=== PATIENT | male | born 1975 | race African-American/Black ===

== ENCOUNTER 2019-01-16 14:03 | Inpatient (IN) | payer MEDICAID ==
[~2019-01-16] VITALS: Ht 182.9 cm; Wt 127.5 kg
[2019-01-16] MEDS ORDERED: SODIUM CHLORIDE 0.9% 1,000 ML IV ONE (14:18)
[2019-01-16] MEDS ORDERED: FAMOTIDINE 20MG/2ML VIAL IV STA (14:18)
[2019-01-16 14:55] LABS: EOSINOPHILS % 1.5 % (0.0-5.0); HEMATOCRIT. 30.5 % (42.0-52.0); HEMOGLOBIN. 9.6 g/dL (14.0-18.0); LYMPHOCYTES % 34.7 % (20.0-50.0); MEAN CORPUSCULAR HEMOGLOBIN 24.3 pg (28.0-32.0); MEAN CORPUSCULAR VOLUME 77.2 fL (80.0-94.0); MEAN PLATELET VOLUME 9.7 fl (7.4-10.4); MONOCYTES % 9.7 % (2.0-8.0); NEUTROPHILS % 53.1 % (40.0-76.0); PLATELET 326 x1000/uL (130-400); RED BLOOD CELL COUNT 3.96 mill/uL (4.7-6.1); RED CELL DISTRIBUTION WIDTH 20.3 % (11.6-14.6)
[2019-01-16 15:01] LABS: CHLORIDE 107 mEq/L (98-107)
[2019-01-16 15:04] LABS: INR 1.4; PROTHROMBIN TIME 14.2 sec (9.6-11.0)
[2019-01-16 15:05] LABS: ETHANOL BLOOD < 10 mg/dL
[2019-01-16] MEDS ORDERED: MORPHINE SULFATE 4 MG/ML CPJ (NOT FOR IM USE) IV ONE (15:15)
[2019-01-16] MEDS ORDERED: ONDANSETRON HCL 4MG/2ML INJ IV ONE (15:15)
[2019-01-16 16:08] LABS: CLARITY URINE CLEAR (CLEAR); COLOR URINE YELLOW (YELLOW); KETONES URINE NEGATIVE (NEGATIVE); LEUKOCYTE ESTERASE URINE NEGATIVE (NEGATIVE); NITRITE URINE NEGATIVE (NEGATIVE); OCCULT BLOOD URINE NEGATIVE (NEGATIVE); PH URINE 5.5 (4.5-8.0); PROTEIN URINE 2+ (NEGATIVE); SPECIFIC GRAVITY URINE 1.011 (1.005-1.030); UROBILINOGEN URINE 0.2 E.U./dL (0.2-1.0)
[2019-01-16 16:21] LABS: *AMPHETAMINES SCREEN URINE NEGATIVE (NEGATIVE); *BARBITURATES SCREEN URINE NEGATIVE (NEGATIVE); CANNABINOID URINE SCREEN NEGATIVE (NEGATIVE); METHADONE URINE SCREEN NEGATIVE (NEGATIVE); OPIATES URINE SCREEN NEGATIVE (NEGATIVE); PHENCYCLIDINE URINE SCREEN NEGATIVE (NEGATIVE)
[2019-01-16 16:22] LABS: *BENZODIAZEPINES SCREEN URINE NEGATIVE (NEGATIVE); *COCAINE SCREEN URINE NEGATIVE (NEGATIVE)
[2019-01-16] MEDS ORDERED: ASPIRIN 81MG TABLET PO ONE (17:30)
[2019-01-16] MEDS ORDERED: ACETAMINOPHEN 325MG TABLET PO PRN (18:15)
[2019-01-16] MEDS: CLONIDINE 0.1MG TABLET PO PRN (19:55)
[2019-01-16] MEDS: TAMSULOSIN HCL 0.4MG SR CAPSULE PO SCH (19:56)
[2019-01-16 21:00] VITALS: BP 151/110
[2019-01-16] MEDS ORDERED: BISACODYL 10MG SUPP PR PRN (22:06)
[2019-01-16] MEDS: FAMOTIDINE 20MG TABLET PO SCH (22:43)
[2019-01-16] MEDS: SODIUM CHLORIDE 0.9% 1,000 ML IV SCH (22:44)
[2019-01-16] MEDS ORDERED: BUME1TAB8 PO (23:19)
[2019-01-16] MEDS ORDERED: AMIO100T4 PO (23:19)
[2019-01-16] MEDS ORDERED: ATOR20TA65 PO (23:19)
[2019-01-16] MEDS ORDERED: CARV6.2548 PO (23:19)
[2019-01-16] MEDS ORDERED: APIX5TAB PO (23:19)
[2019-01-16] MEDS ORDERED: LEVO112T7 PO (23:19)
[2019-01-17] VITALS: BP 127/82
[2019-01-17 04:00] VITALS: BP 131/101
[2019-01-17] MEDS: ONDANSETRON HCL 4MG/2ML INJ IV PRN ×2 (04:43→17:10)
[2019-01-17] MEDS: CLONIDINE 0.1MG TABLET PO PRN (04:52)
[2019-01-17 08:00] VITALS: BP 153/106
[2019-01-17 08:05] LABS: BASOPHILS % 0.9 % (0.0-2.0); EOSINOPHILS % 1.3 % (0.0-5.0); HEMATOCRIT. 28.4 % (42.0-52.0); HEMOGLOBIN. 8.8 g/dL (14.0-18.0); LYMPHOCYTES % 33.8 % (20.0-50.0); MEAN CORPUSCULAR VOLUME 77.1 fL (80.0-94.0); MEAN PLATELET VOLUME 9.8 fl (7.4-10.4); MONOCYTES % 12.8 % (2.0-8.0); NEUTROPHILS % 51.2 % (40.0-76.0); PLATELET 274 x1000/uL (130-400); RED BLOOD CELL COUNT 3.68 mill/uL (4.7-6.1); RED CELL DISTRIBUTION WIDTH 20.2 % (11.6-14.6)
[2019-01-17] MEDS: TAMSULOSIN HCL 0.4MG SR CAPSULE PO SCH ×2 (08:18→21:26)
[2019-01-17] MEDS: AMLODIPINE 5MG TABLET PO SCH ×2 (08:21→21:26)
[2019-01-17 08:33] LABS: CHLORIDE 108 mEq/L (98-107)
[2019-01-17] MEDS ORDERED: HYDRALAZINE HCL 50MG TABLET PO SCH (09:00)
[2019-01-17] MEDS: SODIUM CHLORIDE 0.9% 1,000 ML IV SCH (11:15)
[2019-01-17 11:59] VITALS: BP 145/112
[2019-01-17] MEDS: MORPHINE SULFATE 2 MG/ML CPJ (NOT FOR IM USE) IV PRN (13:54)
[2019-01-17] MEDS: BUMETANIDE 1MG TABLET PO SCH (15:44)
[2019-01-17 16:00] VITALS: BP 129/94
[2019-01-17] MEDS: DOCUSATE SODIUM 100MG CAPSULE PO SCH (17:05)
[2019-01-17 20:00] VITALS: BP 127/95
[2019-01-17] MEDS: FAMOTIDINE 20MG TABLET PO SCH (21:26)
[2019-01-17] MEDS: CARVEDILOL 6.25 MG TABLET PO SCH (21:26)
[2019-01-18] VITALS: BP 113/89
[2019-01-18 04:00] VITALS: BP 119/88
[2019-01-18] MEDS: LEVOTHYROXINE SODIUM 112MCG TABLET PO SCH (06:22)
[2019-01-18 07:37] LABS: BASOPHILS % 0.6 % (0.0-2.0); EOSINOPHILS % 1.7 % (0.0-5.0); HEMATOCRIT. 30.6 % (42.0-52.0); HEMOGLOBIN. 9.5 g/dL (14.0-18.0); MEAN CORPUSCULAR HEMOGLOBIN 23.7 pg (28.0-32.0); MEAN CORPUSCULAR VOLUME 76.7 fL (80.0-94.0); MEAN PLATELET VOLUME 10.3 fl (7.4-10.4); MONOCYTES % 8.3 % (2.0-8.0); NEUTROPHILS % 52.4 % (40.0-76.0); PLATELET 278 x1000/uL (130-400); RED BLOOD CELL COUNT 3.99 mill/uL (4.7-6.1); RED CELL DISTRIBUTION WIDTH 20.4 % (11.6-14.6)
[2019-01-18 08:00] VITALS: BP 146/105
[2019-01-18 08:11] LABS: CHLORIDE 105 mEq/L (98-107)
[2019-01-18 08:22] LABS: PHOSPHORUS 4.6 mg/dL (2.5-4.9)
[2019-01-18] MEDS ORDERED: AMIODARONE HCL 200 MG TABLET PO SCH (09:00)
[2019-01-18] MEDS: AMLODIPINE 5MG TABLET PO SCH (09:24)
[2019-01-18] MEDS: DOCUSATE SODIUM 100MG CAPSULE PO SCH ×2 (09:24→16:53)
[2019-01-18] MEDS: CARVEDILOL 6.25 MG TABLET PO SCH ×2 (09:24→21:00)
[2019-01-18] MEDS: BUMETANIDE 1MG TABLET PO SCH (09:24)
[2019-01-18 11:43] LABS: T4 FREE 1.1 ng/dL (0.76-1.46)
[2019-01-18 12:00] VITALS: BP 148/108
[2019-01-18] MEDS: FUROSEMIDE 40MG/4ML VIAL IVP SCH (13:33)
[2019-01-18] MEDS: LOSARTAN POTASSIUM 25 MG TABLET PO SCH (13:33)
[2019-01-18 16:00] VITALS: BP 140/104
[2019-01-18] MEDS: AMIODARONE HCL 200 MG TABLET PO SCH (16:54)
[2019-01-18] MEDS: CLONIDINE 0.1MG TABLET PO PRN (18:02)
[2019-01-18 20:00] VITALS: BP 107/72
[2019-01-18] MEDS: FAMOTIDINE 20MG TABLET PO SCH (21:27)
[2019-01-18] MEDS: TAMSULOSIN HCL 0.4MG SR CAPSULE PO SCH (21:27)
[2019-01-19] VITALS: BP 135/97
[2019-01-19] MEDS: MORPHINE SULFATE 2 MG/ML CPJ (NOT FOR IM USE) IV PRN (01:22)
[2019-01-19 04:00] VITALS: BP 130/97
[2019-01-19] MEDS: LEVOTHYROXINE SODIUM 112MCG TABLET PO SCH (06:27)
[2019-01-19] MEDS: FUROSEMIDE 40MG/4ML VIAL IVP SCH ×2 (06:32→17:06)
[2019-01-19 08:00] VITALS: BP 149/110
[2019-01-19 08:23] LABS: BASOPHILS % 0.9 % (0.0-2.0); EOSINOPHILS % 2.4 % (0.0-5.0); HEMATOCRIT. 30.1 % (42.0-52.0); HEMOGLOBIN. 9.5 g/dL (14.0-18.0); LYMPHOCYTES % 37.3 % (20.0-50.0); MEAN CORPUSCULAR HEMOGLOBIN 24.4 pg (28.0-32.0); MEAN CORPUSCULAR VOLUME 77.2 fL (80.0-94.0); MEAN PLATELET VOLUME 10.7 fl (7.4-10.4); MONOCYTES % 12.5 % (2.0-8.0); NEUTROPHILS % 46.9 % (40.0-76.0); PLATELET 240 x1000/uL (130-400); RED CELL DISTRIBUTION WIDTH 20.2 % (11.6-14.6)
[2019-01-19] MEDS: AMIODARONE HCL 200 MG TABLET PO SCH ×2 (08:28→17:06)
[2019-01-19] MEDS: BUMETANIDE 1MG TABLET PO SCH (08:34)
[2019-01-19] MEDS: DOCUSATE SODIUM 100MG CAPSULE PO SCH ×2 (08:34→17:06)
[2019-01-19 08:35] LABS: PHOSPHORUS 4.4 mg/dL (2.5-4.9)
[2019-01-19] MEDS: LOSARTAN POTASSIUM 25 MG TABLET PO SCH (08:35)
[2019-01-19] MEDS: CARVEDILOL 6.25 MG TABLET PO SCH (08:35)
[2019-01-19] MEDS: POLYETHYLENE GLYCOL 3350 (17GM) 1 DOSE PACK PO SCH (11:21)
[2019-01-19 12:00] VITALS: BP 117/90
[2019-01-19] MEDS: FAMOTIDINE 20MG TABLET PO SCH ×2 (12:30→20:57)
[2019-01-19] MEDS: ONDANSETRON HCL 4MG/2ML INJ IV PRN (15:52)
[2019-01-19 16:00] VITALS: BP 134/98
[2019-01-19] MEDS: FERROUS SULFATE 325MG TABLET PO SCH (17:06)
[2019-01-19 20:00] VITALS: BP 127/99
[2019-01-19] MEDS: TAMSULOSIN HCL 0.4MG SR CAPSULE PO SCH (20:57)
[2019-01-19] MEDS: CARVEDILOL 12.5MG TABLET PO SCH (20:57)
[2019-01-20] VITALS: BP 130/96
[2019-01-20 04:00] VITALS: BP 125/94
[2019-01-20] MEDS: LEVOTHYROXINE SODIUM 112MCG TABLET PO SCH (06:06)
[2019-01-20] MEDS: FUROSEMIDE 40MG/4ML VIAL IVP SCH ×2 (06:07→18:25)
[2019-01-20 07:51] LABS: HEMATOCRIT. 31.6 % (42.0-52.0); MEAN CORPUSCULAR HEMOGLOBIN 24.4 pg (28.0-32.0); MEAN CORPUSCULAR VOLUME 77.4 fL (80.0-94.0); MEAN PLATELET VOLUME 10.8 fl (7.4-10.4); PLATELET 230 x1000/uL (130-400); RED BLOOD CELL COUNT 4.09 mill/uL (4.7-6.1); RED CELL DISTRIBUTION WIDTH 20.6 % (11.6-14.6)
[2019-01-20 08:00] VITALS: BP 140/105
[2019-01-20] MEDS: POLYETHYLENE GLYCOL 3350 (17GM) 1 DOSE PACK PO SCH (08:28)
[2019-01-20] MEDS: FERROUS SULFATE 325MG TABLET PO SCH ×2 (08:34→18:25)
[2019-01-20] MEDS: FAMOTIDINE 20MG TABLET PO SCH ×2 (08:34→21:48)
[2019-01-20] MEDS: AMIODARONE HCL 200 MG TABLET PO SCH (08:34)
[2019-01-20] MEDS: LOSARTAN POTASSIUM 50 MG TABLET PO SCH (08:35)
[2019-01-20] MEDS: CARVEDILOL 12.5MG TABLET PO SCH ×2 (08:35→21:48)
[2019-01-20] MEDS: DOCUSATE SODIUM 100MG CAPSULE PO SCH ×2 (08:35→18:25)
[2019-01-20] MEDS: IPRATROPIUM/ALBUTEROL 0.5-3(2.5)MG/3ML NEB HHN PRN ×2 (08:43→16:33)
[2019-01-20 10:33] LABS: BG BASE EXCESS -0.9 mmol/L (-2.0-2.0); BG CARBOXYHEMOGLOBIN 0.3 % (0.5-1.5); BG DEOXYHEMOGLOBIN 1.6 % (0.0-5.0); BG FRACTION INSPIRED OXYGEN 28; BG METHEMOGLOBIN 0.1 % (0.0-1.5); BG OXYGEN SATURATION 98.4 % (92.0-98.5); BG PCO2 40.9 mmHg (35.0-45.0); BG PH 7.387 (7.350-7.450); BG PO2 142.8 mmHg (75.0-100.0); BG SAMPLE SITE RIGHT RADIAL; BG TOTAL HEMOGLOBIN 10.6 g/dL (12.0-18.0); BG VENT MODE NASAL CANNULA
[2019-01-20 11:57] VITALS: BP 137/106
[2019-01-20 13:44] LABS: PLATELET ESTIMATE NORMAL
[2019-01-20 16:00] VITALS: BP 133/101
[2019-01-20 20:00] VITALS: BP 110/78
[2019-01-20] MEDS: TAMSULOSIN HCL 0.4MG SR CAPSULE PO SCH (21:47)
[2019-01-21] VITALS: BP 113/84
[2019-01-21 04:00] VITALS: BP 117/90
[2019-01-21] MEDS ORDERED: DIPHENHYDRAMINE 25MG CAPSULE PO PRN (05:15)
[2019-01-21] MEDS: LEVOTHYROXINE SODIUM 112MCG TABLET PO SCH (06:47)
[2019-01-21] MEDS: FUROSEMIDE 40MG/4ML VIAL IVP SCH (06:47)
[2019-01-21] MEDS: FERROUS SULFATE 325MG TABLET PO SCH (06:47)
[2019-01-21 07:08] LABS: CHLORIDE 105 mEq/L (98-107)
[2019-01-21 07:15] LABS: PHOSPHORUS 4.6 mg/dL (2.5-4.9)
[2019-01-21 07:18] LABS: BASOPHILS % 0.6 % (0.0-2.0); EOSINOPHILS % 1.2 % (0.0-5.0); HEMATOCRIT. 30.9 % (42.0-52.0); HEMOGLOBIN. 9.9 g/dL (14.0-18.0); LYMPHOCYTES % 36.6 % (20.0-50.0); MEAN CORPUSCULAR HEMOGLOBIN 24.4 pg (28.0-32.0); MEAN CORPUSCULAR VOLUME 76.4 fL (80.0-94.0); MEAN PLATELET VOLUME 10.9 fl (7.4-10.4); MONOCYTES % 14.2 % (2.0-8.0); NEUTROPHILS % 47.4 % (40.0-76.0); PLATELET 212 x1000/uL (130-400); RED BLOOD CELL COUNT 4.04 mill/uL (4.7-6.1); RED CELL DISTRIBUTION WIDTH 20.1 % (11.6-14.6)
[2019-01-21 08:00] VITALS: BP 152/115
[2019-01-21] MEDS: LOSARTAN POTASSIUM 50 MG TABLET PO SCH (08:54)
[2019-01-21] MEDS: POLYETHYLENE GLYCOL 3350 (17GM) 1 DOSE PACK PO SCH (08:54)
[2019-01-21] MEDS: FAMOTIDINE 20MG TABLET PO SCH (08:54)
[2019-01-21] MEDS: CARVEDILOL 12.5MG TABLET PO SCH (08:55)
[2019-01-21] MEDS: DOCUSATE SODIUM 100MG CAPSULE PO SCH (08:55)
[2019-01-21] MEDS ORDERED: FUROSEMIDE 40MG TABLET PO SCH (09:00)
[2019-01-21] MEDS ORDERED: AMIODARONE HCL 200 MG TABLET PO SCH ×2 (09:00→21:00)
[2019-01-21] MEDS ORDERED: FAMO20TA8 PO (09:53)
[2019-01-21] MEDS ORDERED: TAMS-11 PO (09:53)
[2019-01-21] MEDS ORDERED: POLY17PO3 PO (09:53)
[2019-01-21] MEDS ORDERED: LOSA50TA3 PO (09:53)
[2019-01-21] MEDS ORDERED: COR12 PO (09:53)
[2019-01-21] MEDS ORDERED: AMI2 PO (09:53)
[2019-01-21] MEDS ORDERED: FERR325T23 PO (09:53)
[2019-01-21 11:41] VITALS: BP 121/91
== END 2019-01-21 14:10 | DRG 194 ==
LOC: ER 14:16 → 8WST 17:28 → EDBEDREQ 17:37 → ENRESERV 19:21
PROVIDERS: ADMIT Internal Medicine; ATTEND Internal Medicine
DX: I13.0 Hypertensive heart and chronic kidney disease with heart failure and stage 1 through stage 4 chronic kidney disease, or unspecified chronic kidney disease (principal); N18.4 Chronic kidney disease, stage 4 (severe); I27.20 Pulmonary hypertension, unspecified; I31.3 Pericardial effusion (noninflammatory); N17.9 Acute kidney failure, unspecified; E44.1 Mild protein-calorie malnutrition; Q61.3 Polycystic kidney, unspecified; I42.9 Cardiomyopathy, unspecified; I50.43 Acute on chronic combined systolic (congestive) and diastolic (congestive) heart failure; K80.20 Calculus of gallbladder without cholecystitis without obstruction; N40.0 Benign prostatic hyperplasia without lower urinary tract symptoms; E03.9 Hypothyroidism, unspecified; D64.9 Anemia, unspecified; K42.9 Umbilical hernia without obstruction or gangrene; Z95.810 Presence of automatic (implantable) cardiac defibrillator; Z91.19 Patient's noncompliance with other medical treatment and regimen; Z86.718 Personal history of other venous thrombosis and embolism; Z59.0 Homelessness; Z79.01 Long term (current) use of anticoagulants; Z79.899 Other long term (current) drug therapy; Z82.71 Family history of polycystic kidney; N28.89 Other specified disorders of kidney and ureter
CPT/HCPCS: 36415; 36600; 71045; 74176; 80048; 80305; 80320; 81003; 82375; 82805; 82962; 83540; 83550; 83735; 84100; 84439; 84443; 84481; 84484; 86850; 86900; 93005; 93306; 93970; 94640; 96361; 96365; 96366; 99285; J1940; J2270; J2405; J3490; J7030; J7620; Q0163; G0480

== ENCOUNTER 2019-01-30 21:09 | Inpatient (IN) | payer MEDICAID ==
[~2019-01-30] VITALS: Ht 182.9 cm; Wt 115.8 kg
[~2019-01-30 21:09] MED LIST: AMI2 PO; ATOR20TA65 PO; BUME1TAB8 PO; COR12 PO; FAMO20TA8 PO; FERR325T23 PO; LEVO112T7 PO; POLY17PO3 PO; TAMS-11 PO
[2019-01-30] MEDS ORDERED: ONDANSETRON HCL 4MG/2ML INJ IV STA (22:44)
[2019-01-30] MEDS ORDERED: ASPIRIN 81MG TABLET PO ONE (22:45)
[2019-01-30] MEDS ORDERED: HYDRALAZINE HCL 100MG TABLET PO ONE (22:45)
[2019-01-30 22:46] LABS: BASOPHILS % 1.1 % (0.0-2.0); EOSINOPHILS % 2.3 % (0.0-5.0); HEMATOCRIT. 32.3 % (42.0-52.0); HEMOGLOBIN. 10.1 g/dL (14.0-18.0); MEAN CORPUSCULAR HEMOGLOBIN 24.4 pg (28.0-32.0); MEAN CORPUSCULAR VOLUME 78.4 fL (80.0-94.0); MEAN PLATELET VOLUME 11.1 fl (7.4-10.4); MONOCYTES % 11.6 % (2.0-8.0); PLATELET 121 x1000/uL (130-400); RED BLOOD CELL COUNT 4.11 mill/uL (4.7-6.1); RED CELL DISTRIBUTION WIDTH 22.2 % (11.6-14.6)
[2019-01-30 22:53] LABS: CHLORIDE 110 mEq/L (98-107)
[2019-01-30 23:00] LABS: PLATELET ESTIMATE NORMAL
[2019-01-30] MEDS ORDERED: FUROSEMIDE 40MG/4ML VIAL IVP ONE (23:45)
[2019-01-31 04:00] VITALS: BP_SYST 152; BP_SYST 154; BP_DIAS 118; BP_DIAS 122
[2019-01-31 08:00] VITALS: BP 153/118
[2019-01-31] MEDS: FUROSEMIDE 100MG/10ML VIAL IVP SCH ×2 (08:44→17:01)
[2019-01-31] MEDS: FERROUS SULFATE 325MG TABLET PO SCH ×2 (08:45→17:02)
[2019-01-31] MEDS: LEVOTHYROXINE SODIUM 112MCG TABLET PO SCH (08:45)
[2019-01-31] MEDS: AMIODARONE HCL 200 MG TABLET PO SCH (08:56)
[2019-01-31] MEDS: TAMSULOSIN HCL 0.4MG SR CAPSULE PO SCH (08:56)
[2019-01-31] MEDS ORDERED: CARVEDILOL 12.5MG TABLET PO SCH (09:00)
[2019-01-31] MEDS ORDERED: HYDRALAZINE HCL 100MG TABLET PO SCH (10:00)
[2019-01-31 11:36] LABS: CLARITY URINE CLEAR (CLEAR); COLOR URINE YELLOW (YELLOW); KETONES URINE NEGATIVE (NEGATIVE); LEUKOCYTE ESTERASE URINE NEGATIVE (NEGATIVE); NITRITE URINE NEGATIVE (NEGATIVE); OCCULT BLOOD URINE NEGATIVE (NEGATIVE); PH URINE 5.5 (4.5-8.0); PROTEIN URINE NEGATIVE (NEGATIVE); SPECIFIC GRAVITY URINE 1.009 (1.005-1.030); UROBILINOGEN URINE 0.2 E.U./dL (0.2-1.0)
[2019-01-31 12:00] VITALS: BP 148/112
[2019-01-31] MEDS ORDERED: ONDANSETRON HCL 4MG/2ML INJ IV PRN (14:15)
[2019-01-31] MEDS: HYDRALAZINE HCL 25MG TABLET PO SCH ×2 (14:31→21:18)
[2019-01-31 16:00] VITALS: BP 148/114
[2019-01-31] MEDS: CLONIDINE 0.1MG TABLET PO PRN (17:01)
[2019-01-31 20:00] VITALS: BP 155/118
[2019-01-31] MEDS: CARVEDILOL 12.5MG TABLET PO SCH (21:18)
[2019-01-31] MEDS: ATORVASTATIN CALCIUM 20MG TABLET PO SCH (21:18)
[2019-01-31] MEDS: FAMOTIDINE 20MG TABLET PO SCH (21:19)
[2019-02-01] VITALS (7 sets, daily range): BP systolic 131–159; BP diastolic 92–114
[2019-02-01] MEDS: FUROSEMIDE 100MG/10ML VIAL IVP SCH ×2 (05:27→17:36)
[2019-02-01] MEDS: HYDRALAZINE HCL 25MG TABLET PO SCH (05:28)
[2019-02-01] MEDS: LEVOTHYROXINE SODIUM 112MCG TABLET PO SCH (06:22)
[2019-02-01 07:17] LABS: BASOPHILS % 0.8 % (0.0-2.0); EOSINOPHILS % 2.5 % (0.0-5.0); HEMATOCRIT. 32.7 % (42.0-52.0); HEMOGLOBIN. 10.4 g/dL (14.0-18.0); MEAN CORPUSCULAR HEMOGLOBIN 25.1 pg (28.0-32.0); MEAN CORPUSCULAR VOLUME 78.5 fL (80.0-94.0); MEAN PLATELET VOLUME 10.7 fl (7.4-10.4); MONOCYTES % 10.8 % (2.0-8.0); NEUTROPHILS % 53.9 % (40.0-76.0); PLATELET 109 x1000/uL (130-400); RED BLOOD CELL COUNT 4.16 mill/uL (4.7-6.1); RED CELL DISTRIBUTION WIDTH 22.1 % (11.6-14.6)
[2019-02-01] MEDS: TAMSULOSIN HCL 0.4MG SR CAPSULE PO SCH (08:46)
[2019-02-01] MEDS: FERROUS SULFATE 325MG TABLET PO SCH ×2 (08:47→17:36)
[2019-02-01] MEDS: CARVEDILOL 12.5MG TABLET PO SCH ×2 (08:47→21:07)
[2019-02-01] MEDS: AMIODARONE HCL 200 MG TABLET PO SCH (08:47)
[2019-02-01] MEDS: HYDRALAZINE HCL 100MG TABLET PO SCH ×2 (14:36→21:07)
[2019-02-01] MEDS: FAMOTIDINE 20MG TABLET PO SCH (21:07)
[2019-02-01] MEDS: AMLODIPINE 5MG TABLET PO SCH (21:07)
[2019-02-01] MEDS: ATORVASTATIN CALCIUM 20MG TABLET PO SCH (21:07)
[2019-02-02] VITALS (7 sets, daily range): BP systolic 97–152; BP diastolic 56–112
[2019-02-02] MEDS: FUROSEMIDE 100MG/10ML VIAL IVP SCH ×2 (06:07→18:52)
[2019-02-02] MEDS: HYDRALAZINE HCL 100MG TABLET PO SCH ×3 (06:08→21:22)
[2019-02-02] MEDS: LEVOTHYROXINE SODIUM 112MCG TABLET PO SCH (06:20)
[2019-02-02] MEDS: TAMSULOSIN HCL 0.4MG SR CAPSULE PO SCH (08:14)
[2019-02-02] MEDS: CARVEDILOL 12.5MG TABLET PO SCH ×2 (08:14→21:22)
[2019-02-02] MEDS: AMIODARONE HCL 200 MG TABLET PO SCH (08:14)
[2019-02-02] MEDS: AMLODIPINE 5MG TABLET PO SCH ×2 (08:15→21:21)
[2019-02-02] MEDS: FERROUS SULFATE 325MG TABLET PO SCH ×2 (08:15→18:53)
[2019-02-02] MEDS: ATORVASTATIN CALCIUM 20MG TABLET PO SCH (21:21)
[2019-02-02] MEDS: FAMOTIDINE 20MG TABLET PO SCH (21:22)
[2019-02-03 04:39] VITALS: BP 106/67
[2019-02-03] MEDS: HYDRALAZINE HCL 100MG TABLET PO SCH ×2 (05:00→15:42)
[2019-02-03] MEDS: FUROSEMIDE 100MG/10ML VIAL IVP SCH ×2 (06:06→17:05)
[2019-02-03] MEDS: LEVOTHYROXINE SODIUM 112MCG TABLET PO SCH (06:07)
[2019-02-03 08:00] VITALS: BP 144/112
[2019-02-03] MEDS: FERROUS SULFATE 325MG TABLET PO SCH ×2 (08:51→17:05)
[2019-02-03] MEDS: TAMSULOSIN HCL 0.4MG SR CAPSULE PO SCH (08:51)
[2019-02-03] MEDS: AMLODIPINE 5MG TABLET PO SCH (08:51)
[2019-02-03] MEDS: CARVEDILOL 12.5MG TABLET PO SCH (08:52)
[2019-02-03] MEDS: AMIODARONE HCL 200 MG TABLET PO SCH (08:52)
[2019-02-03 11:43] VITALS: BP 146/100
[2019-02-03] MEDS: CLONIDINE 0.1MG TABLET PO PRN (11:44)
[2019-02-03 16:30] VITALS: BP 118/84
[2019-02-03 16:44] VITALS: BP 118/84
== END 2019-02-03 19:04 | DRG 194 ==
LOC: ER 21:27 → 6WST 23:46 → ENRESERV 01-31 01:41
PROVIDERS: ADMIT Internal Medicine; ATTEND Internal Medicine
DX: I13.0 Hypertensive heart and chronic kidney disease with heart failure and stage 1 through stage 4 chronic kidney disease, or unspecified chronic kidney disease (principal); E87.8 Other disorders of electrolyte and fluid balance, not elsewhere classified; E44.0 Moderate protein-calorie malnutrition; I27.20 Pulmonary hypertension, unspecified; I07.1 Rheumatic tricuspid insufficiency; I50.43 Acute on chronic combined systolic (congestive) and diastolic (congestive) heart failure; N18.3 Chronic kidney disease, stage 3 (moderate); E66.9 Obesity, unspecified; E03.9 Hypothyroidism, unspecified; E78.5 Hyperlipidemia, unspecified; J44.9 Chronic obstructive pulmonary disease, unspecified; D64.9 Anemia, unspecified; I42.9 Cardiomyopathy, unspecified; N40.0 Benign prostatic hyperplasia without lower urinary tract symptoms; Z95.810 Presence of automatic (implantable) cardiac defibrillator; Q61.3 Polycystic kidney, unspecified; Z91.19 Patient's noncompliance with other medical treatment and regimen; Z79.899 Other long term (current) drug therapy; Z91.011 Allergy to milk products; Z71.3 Dietary counseling and surveillance; Z68.34 Body mass index [BMI] 34.0-34.9, adult
CPT/HCPCS: 36415; 71045; 73700; 80048; 81003; 83880; 84484; 93005; 96374; 96375; 97116; 97162; 99291; J1940; J2405